=== PATIENT | male | born 1965 | race Caucasian/White ===

== ENCOUNTER → 2018-09-06 | Outpatient (CLI) | payer BC ==
[~2018-09-06] MED LIST: ASPIRIN 81M81 MG/TA2 PO; BRILINTA90 MG PO; LIPITOR 80MG80 MG PO; LOPRESSOR 550 MG/TAB PO; NITROSTAT0.4 MG/TAB SL; PLAVIX 75MG TAB75 MG PO; TOPROL XL100 MG PO; ZESTRIL 20MG TA20 MG PO
== END ==
LOC: COL.RAD 15:22
DX: M47.816 Spondylosis without myelopathy or radiculopathy, lumbar region (principal); M43.16 Spondylolisthesis, lumbar region; N50.811 Right testicular pain; N20.1 Calculus of ureter

== ENCOUNTER 2019-03-03 08:57 | Day surgery (SDC) | payer BC ==
[~2019-03-03] VITALS: Ht 177.8 cm; Wt 150.9 kg
[2019-03-03] VITALS (9 sets, daily range): BP systolic 103–128; BP diastolic 52–73; PULSE 50–68; TEMP 97.2
[2019-03-03 10:09] LABS: HEMATOCRIT 39.7 % (42.0-52.0); HEMOGLOBIN 13.3 g/dl (13.5-18.0); MEAN CELL VOLUME 88 fl (80.0-100.0); MEAN CORPUSCULAR HEMOGLOBIN 29 pg (27.0-31.0); MEAN CORPUSCULAR HGB CONC 34 g/dl (33.0-37.0); MEAN PLATELET VOLUME 9.3 fl (7.4-10.4); PLATELET COUNT 165 K/mm3 (130-400); RED BLOOD COUNT 4.52 M/mm3 (4.20-5.60); REDCELL DISTRIBUTION WIDTH-CV 12.8 % (11.5-14.5)
[2019-03-03] MEDS ORDERED: PLAVIX 75MG TAB75 MG PO (10:14)
[2019-03-03] MEDS ORDERED: NORVASC 10MG10 MG PO (10:15)
[2019-03-03] MEDS ORDERED: CRESTOR 10MG10 MG PO (10:16)
[2019-03-03] MEDS ORDERED: IMDUR 30MG30 MG/TAB PO (10:17)
[2019-03-03] MEDS ORDERED: COZAAR100 MG PO (10:18)
[2019-03-03] MEDS ORDERED: ALEVE 220MG220 MG PO (10:18)
[2019-03-03 10:21] LABS: INR 1.1 (0.8-3.0); PROTHROMBIN TIME 12.6 SECONDS (9.7-12.8)
--- NOTE | 2019-03-03 11:21 | NUR ---
ALL MEDICATIONS GIVEN WITH VORB BY MD. SEE MERGE FOR ALL MEDICATION ADMIN TIMES. SEE MERGE FOR ALL RASS ASSESSMENTS DURING AND POST PROCEDURE. POSITIVE BARBEAU'S TEST IN THE RIGHT WRIST.
[2019-03-03 11:35] LABS: CALCIUM 8.9 mg/dL (8.4-10.2); CREATININE, serum 0.89 (0.66-1.25); POTASSIUM 4.2 mmol/L (3.4-5.0)
[2019-03-03] MEDS ORDERED: LASIX 40MG TABL40 MG PO (12:07)
--- NOTE | 2019-03-03 12:28 | NUR ---
Back from [employer] by bed. Alert and oriented, denies pain at this time. TR band to right wrist with 15 cc air, strong pulses and cap refill < 3 secs. Spouse bedside
--- NOTE | 2019-03-03 14:12 | NUR ---
Deflated TR band by 3 ml air at 1400 and another 3 ml now. No bleeding noted.
--- NOTE | 2019-03-03 14:40 | NUR ---
3 ml air out. No bleeding noted.
--- NOTE | 2019-03-03 15:19 | NUR ---
INT discontinued intact. Discharge instructions given. Transferred to private car by kumar
== END 2019-03-03 15:20 | disposition home or self-care (01) ==
LOC: COL.CAR 08:57
PROVIDERS: Internal Medicine Cardiovascular Disease
DX: I25.118 Atherosclerotic heart disease of native coronary artery with other forms of angina pectoris (principal); I10 Essential (primary) hypertension; E78.5 Hyperlipidemia, unspecified; R53.83 Other fatigue; G47.33 Obstructive sleep apnea (adult) (pediatric); E66.9 Obesity, unspecified; Z79.02 Long term (current) use of antithrombotics/antiplatelets; I25.2 Old myocardial infarction; R60.0 Localized edema; Z82.49 Family history of ischemic heart disease and other diseases of the circulatory system; Z83.3 Family history of diabetes mellitus; Z87.891 Personal history of nicotine dependence; Z82.3 Family history of stroke; Z88.8 Allergy status to other drugs, medicaments and biological substances
CPT/HCPCS: J1644; J2250; J3010; Q9967